=== PATIENT | female | born 1945 | race Caucasian/White ===

== ENCOUNTER 2018-11-04 08:08 | Inpatient (IN) ==
--- NOTE | 2018-11-04 08:10 | PROVIDER DOCUMENTATION ---
HPI-Syncope/Dizziness - General Stated Complaint: VERTIGO, DIZZINESS Time Seen by Provider: 11/04/18 08:09 Source: patient Allergies/Adverse Reactions: Patient Allergies Allergy/AdvReac Type Severity Reaction Status Date / Time azithromycin [From Zithromax] Allergy Intermediate HIVES Verified 11/04/18 10:56 cephalexin [Cephalexin] Allergy Intermediate HIVES/SWELL Verified 11/04/18 10:56 ING ciprofloxacin [From Cipro] Allergy Intermediate HIVES Verified 11/04/18 10:56 ciprofloxacin HCl * Allergy Intermediate HIVES Verified 11/04/18 10:56 [From Cipro] levofloxacin [From Levaquin] Allergy Intermediate HIVES Verified 11/04/18 10:56 Latex, Natural Rubber Allergy Mild RASH Verified 11/04/18 10:56 Sulfa (Sulfonamide Allergy Mild RASH Verified 11/04/18 10:56 Antibiotics) Penicillins Allergy Unknown Unknown Verified 11/04/18 10:56 methylprednisolone Allergy RASH Verified 11/04/18 10:56 chlordiazepoxide AdvReac Severe SYNCOPE Verified 11/04/18 10:56 [From Librax (with clidinium)] clidinium bromide * AdvReac Severe SYNCOPE Verified 11/04/18 10:56 [From Librax (with clidinium)] ceftriaxone [From Rocephin] AdvReac Unknown Verified 11/04/18 10:56 Home Medications: Home Medication List Medication Instructions Recorded Confirmed Last Taken Type Ca Carbonate/Vitamin D3/Vit K 1 each PO BID 01/30/13 11/04/18 11/24/13 20:00 History [Viactiv Tablet Chew] Carvedilol 25 mg PO BID 01/30/13 11/04/18 11/25/13 05:50 History Fexofenadine [Delfina] 180 mg PO DAILY 01/30/13 11/04/18 11/25/13 05:50 History Gabapentin [Neurontin] 300 mg PO TID 01/30/13 11/04/18 11/25/13 05:50 History Losartan Potassium 100 mg PO DAILY 01/30/13 11/04/18 11/25/13 05:50 History Multivit, Iron, Min #5, FA [Fabi S 1 each PO DAILY 01/30/13 11/04/18 11/24/13 08:00 History Forte Caplet] Omeprazole [Prilosec] 20 mg PO DAILY 01/30/13 11/04/18 11/24/13 08:00 History Potassium Chloride [Klor-Con 8] 8 meq PO TID 01/30/13 11/04/18 11/25/13 05:50 History Triamterene/Hydrochlorothiazid 1 each PO DAILY 01/30/13 11/04/18 11/25/13 05:50 History [Triamterene-Hctz 37.5-25 mg Tb] Levothyroxine [Synthroid] 88 microgm PO DAILY 11/24/13 11/04/18 11/24/13 20:00 History PRAVAstatin [Pravachol] 20 mg PO QHS 11/24/13 11/04/18 11/24/13 20:00 History Aspirin 325 mg PO DAILY 11/04/18 11/04/18 Unknown History Clonidine [Catapres] 0.1 mg PO TID 11/04/18 11/04/18 Unknown History Fluticasone 50 Mcg Nasal Boles 1 spray ORDERED DAILY 11/04/18 11/04/18 Unknown History [Flonase] Glimepiride 2 mg PO BID 11/04/18 11/04/18 Unknown History Guaifenesin [Mucinex] 600 mg PO PRN PRN 11/04/18 11/04/18 Unknown History Saxagliptin [Onglyza] 5 mg PO DAILY 11/04/18 11/04/18 Unknown History - History of Present Illness-Syncope/Dizzy Nature of Presenting Problem: Presents to the with complaints of dizziness. She states that she normally gets up at 2-3am and goes to urinate and when she did this morning she felt dizziness. She states that this morning she woke up and was very dizzy. She states that she tried to lift her head up and she ended up having to slide h erself out of the bed onto her covers, messed herself and crawled to get a phone. She states that this has happened to her many years ago and it was vertigo but this time it is worse. She states that she lives alone. She says the dizziness if fine if she is laying flat but if she moves her head and tries to get up she gets dizzy. She denies any weakness in any other extremity Prior Episodes: reports: remote history Onset/Duration: reports: this morning Timing: reports: still present Position/Activity at time of episode: reports: activity Symptoms prior to episode: reports: lightheaded Loss of Consciousness: no loss of consciousness Location of injury. (If syncope resulted in an injury.): reports: none Current Symptoms: reports: dizzy Review of Systems - Adult - REVIEW OF SYSTEMS - ADULT Constitutional: reports: no symptoms reported. denies: chills, fever Eyes: reports: no symptoms reported Ears, Nose, Mouth & Throat: reports: no symptoms reported Cardiovascular: reports: no symptoms reported Respiratory: reports: no symptoms reported Gastrointestinal: reports: no symptoms reported Genitourinary: reports: no symptoms reported Musculoskeletal: reports: no symptoms reported Integumentary: reports: no symptoms reported Neurological: reports: dizziness/vertigo Psychiatric: reports: no symptoms reported Endocrine: reports: no symptoms reported Hematologic/Lymphatic: reports: no symptoms reported Allergic/Immunologic: reports: no symptoms reported All Other Systems: Reviewed and Negative Past History - Adult - PAST MEDICAL HISTORY-ADULT Review of Records: reports: Old Records Reviewed Physical Exam-General - CONSTITUTIONAL General Appearance: alert, mild distress, anxious, other (dried stool on buttocks and legs) - EYES Eyes: PERRL/EOMI - HEAD, EARS, NOSE, MOUTH & THROAT HENMT: normocephalic/atraumatic - NECK Neck: non-tender, full range of motion, supple, normal inspection - RESPIRATORY Respiratory: chest non-tender, lungs clear, normal breath sounds - CARDIOVASCULAR Cardiovascular: normal peripheral pulses, regular rate, rhythm - GASTROINTESTINAL (ABDOMEN) Abdominal Exam: normal bowel sounds, non tender - MUSCULOSKELETAL Back Exam: normal inspection Extremity: normal range of motion, normal inspection - SKIN Integumentary: normal color, warm/dry - NEUROLOGIC Neurologic: infant childcare provider II-XII nml as tested, no motor/sensory deficits - PSYCHIATRIC Psych/Mental Status: normal mood/affect, oriented x 3 Progress - PLAN OF CARE/RESULTS Progress/Plan/Lab Results: Vital Signs - 8 hr 11/04/18 08:19 11/04/18 08:20 11/04/18 08:21 Temperature Pulse Rate 67 75 71 Pulse Rate [Sitting] Pulse Rate [Standing] Pulse Rate [Supine] Respiratory Rate 20 20 25 H Blood Pressure 203/95 Blood Pressure [Sitting] Blood Pressure [Standing] Blood Pressure [Supine] O2 Sat by Pulse Oximetry 96 97 97 11/04/18 08:28 11/04/18 08:30 11/04/18 08:32 Temperature 97.5 F L Pulse Rate 74 66 67 Pulse Rate [Sitting] Pulse Rate [Standing] Pulse Rate [Supine] Respiratory Rate 20 18 21 Blood Pressure 203/95 203/90 Blood Pressure [Sitting] Blood Pressure [Standing] Blood Pressure [Supine] O2 Sat by Pulse Oximetry 95 97 97 11/04/18 08:40 11/04/18 08:47 11/04/18 08:50 Temperature Pulse Rate 71 71 71 Pulse Rate [Sitting] Pulse Rate [Standing] Pulse Rate [Supine] Respiratory Rate 18 19 22 Blood Pressure 220/91 Blood Pressure [Sitting] Blood Pressure [Standing] Blood Pressure [Supine] O2 Sat by Pulse Oximetry 98 97 98 11/04/18 09:00 11/04/18 09:02 11/04/18 09:10 Temperature Pulse Rate 64 64 68 Pulse Rate [Sitting] Pulse Rate [Standing] Pulse Rate [Supine] Respiratory Rate 16 22 17 Blood Pressure 190/98 Blood Pressure [Sitting] Blood Pressure [Standing] Blood Pressure [Supine] O2 Sat by Pulse Oximetry 98 98 98 11/04/18 09:17 11/04/18 09:20 11/04/18 09:30 Temperature Pulse Rate 66 65 65 Pulse Rate [Sitting] Pulse Rate [Standing] Pulse Rate [Supine] Respiratory Rate 17 15 15 Blood Pressure 203/108 Blood Pressure [Sitting] Blood Pressure [Standing] Blood Pressure [Supine] O2 Sat by Pulse Oximetry 98 99 98 11/04/18 09:32 11/04/18 09:44 11/04/18 09:45 Temperature Pulse Rate 66 Pulse Rate [Sitting] Pulse Rate [Standing] Pulse Rate [Supine] Respiratory Rate 16 Blood Pressure 199/85 197/102 Blood Pressure [Sitting] Blood Pressure [Standing] Blood Pressure [Supine] O2 Sat by Pulse Oximetry 98 99 98 11/04/18 09:46 11/04/18 09:48 11/04/18 09:59 Temperature Pulse Rate Pulse Rate [Sitting] 81 Pulse Rate [Standing] 71 Pulse Rate [Supine] 73 Respiratory Rate Blood Pressure 221/102 211/98 Blood Pressure [Sitting] 221/102 Blood Pressure [Standing] 211/98 Blood Pressure [Supine] 197/102 O2 Sat by Pulse Oximetry 98 98 11/04/18 10:25 11/04/18 10:30 11/04/18 10:32 Temperature Pulse Rate 74 72 Pulse Rate [Sitting] Pulse Rate [Standing] Pulse Rate [Supine] Respiratory Rate Blood Pressure 205/130 Blood Pressure [Sitting] Blood Pressure [Standing] Blood Pressure [Supine] O2 Sat by Pulse Oximetry 99 98 97 11/04/18 10:40 11/04/18 10:47 11/04/18 10:50 Temperature Pulse Rate 70 71 72 Pulse Rate [Sitting] Pulse Rate [Standing] Pulse Rate [Supine] Respiratory Rate Blood Pressure 218/100 Blood Pressure [Sitting] Blood Pressure [Standing] Blood Pressure [Supine] O2 Sat by Pulse Oximetry 98 98 98 11/04/18 10:52 11/04/18 11:00 11/04/18 11:02 Temperature Pulse Rate 73 71 70 Pulse Rate [Sitting] Pulse Rate [Standing] Pulse Rate [Supine] Respiratory Rate Blood Pressure 212/98 213/76 Blood Pressure [Sitting] Blood Pressure [Standing] Blood Pressure [Supine] O2 Sat by Pulse Oximetry 99 98 98 11/04/18 11:10 11/04/18 11:17 11/04/18 11:20 Temperature Pulse Rate 68 68 74 Pulse Rate [Sitting] Pulse Rate [Standing] Pulse Rate [Supine] Respiratory Rate Blood Pressure 199/70 Blood Pressure [Sitting] Blood Pressure [Standing] Blood Pressure [Supine] O2 Sat by Pulse Oximetry 98 98 97 11/04/18 11:30 11/04/18 11:32 11/04/18 11:40 Temperature Pulse Rate 65 67 67 Pulse Rate [Sitting] Pulse Rate [Standing] Pulse Rate [Supine] Respiratory Rate Blood Pressure 200/111 Blood Pressure [Sitting] Blood Pressure [Standing] Blood Pressure [Supine] O2 Sat by Pulse Oximetry 97 97 97 11/04/18 11:47 11/04/18 11:50 11/04/18 12:00 Temperature Pulse Rate 69 71 68 Pulse Rate [Sitting] Pulse Rate [Standing] Pulse Rate [Supine] Respiratory Rate Blood Pressure 204/90 Blood Pressure [Sitting] Blood Pressure [Standing] Blood Pressure [Supine] O2 Sat by Pulse Oximetry 97 98 97 11/04/18 12:02 11/04/18 12:10 11/04/18 12:18 Temperature Pulse Rate 70 68 74 Pulse Rate [Sitting] Pulse Rate [Standing] Pulse Rate [Supine] Respiratory Rate 20 Blood Pressure 184/105 191/74 Blood Pressure [Sitting] Blood Pressure [Standing] Blood Pressure [Supine] O2 Sat by Pulse Oximetry 98 98 96 11/04/18 12:20 11/04/18 12:30 11/04/18 12:32 Temperature Pulse Rate 69 73 71 Pulse Rate [Sitting] Pulse Rate [Standing] Pulse Rate [Supine] Respiratory Rate Blood Pressure 173/75 Blood Pressure [Sitting] Blood Pressure [Standing] Blood Pressure [Supine] O2 Sat by Pulse Oximetry 95 92 L 94 L 11/04/18 12:40 11/04/18 12:47 11/04/18 12:50 Temperature Pulse Rate 70 71 72 Pulse Rate [Sitting] Pulse Rate [Standing] Pulse Rate [Supine] Respiratory Rate Blood Pressure 173/61 Blood Pressure [Sitting] Blood Pressure [Standing] Blood Pressure [Supine] O2 Sat by Pulse Oximetry 94 L 93 L 94 L 11/04/18 12:57 11/04/18 13:00 11/04/18 13:02 Temperature Pulse Rate 70 73 69 Pulse Rate [Sitting] Pulse Rate [Standing] Pulse Rate [Supine] Respiratory Rate 18 20 Blood Pressure 168/70 172/69 Blood Pressure [Sitting] Blood Pressure [Standing] Blood Pressure [Supine] O2 Sat by Pulse Oximetry 91 L 96 95 Laboratory Results - last 24 hr 11/04/18 11/04/18 11/04/18 08:26 08:52 08:52 WBC 9.92 RBC 4.94 Hgb 15.2 Hct 44.8 MCV 90.7 MCH 30.8 MCHC 33.9 RDW Std Deviation 13.4 Plt Count 192 MPV 9.7 Immature Gran % (Auto) 0.4 Neut % (Auto) 76.6 H Lymph % (Auto) 12.6 L [place] % (Auto) 7.0 Eos % (Auto) 2.9 Baso % (Auto) 0.5 Immature Gran # (Auto) 0.04 Neut # (Auto) 7.60 H Lymph # (Auto) 1.25 [place] # (Auto) 0.69 H Eos # (Auto) 0.29 Baso # (Auto) 0.05 Sodium 141 Potassium 3.8 Chloride 101 Carbon Dioxide 27 Anion Gap 13 BUN 18 Creatinine 0.8 Estimated GFR/1.73 m2 > 60 BUN/Creatinine Ratio 23 Glucose 174 H POC Glucose 187 H Calculated Osmolality 287 Calcium 9.5 Total Bilirubin 0.52 AST 27 ALT 32 Alkaline Phosphatase 85 Troponin T Total Protein 6.8 Albumin 4.2 Globulin 2.6 Albumin/Globulin Ratio 1.6 TSH Free T4 Urine Source Urine Color Urine Turbidity Urine pH Ur Specific [place] Urine Protein Ur Glucose (Stick) Ur Ketones (Stick) Urine Blood Urine Nitrite Urine Bilirubin Urobilinogen Dipstick Urine Leukocytes Urine WBC (Auto) Urine RBC (Auto) U Epithel Cells (Auto) Urine Bacteria (Auto) Urine Opiates Screen Ur Oxycodone Screen Ur Methadone, Qual Ur Barbiturates Screen Ur Phencyclidine Scrn Ur Amphetamines Screen U Benzodiazepines Scrn Urine Cocaine Screen U Cannabinoids Screen 11/04/18 11/04/18 11/04/18 08:52 08:52 09:55 WBC RBC Hgb Hct MCV MCH MCHC RDW Std Deviation Plt Count MPV Immature Gran % (Auto) Neut % (Auto) Lymph % (Auto) [place] % (Auto) Eos % (Auto) Baso % (Auto) Immature Gran # (Auto) Neut # (Auto) Lymph # (Auto) [place] # (Auto) Eos # (Auto) Baso # (Auto) Sodium Potassium Chloride Carbon Dioxide Anion Gap BUN Creatinine Estimated GFR/1.73 m2 BUN/Creatinine Ratio Glucose POC Glucose Calculated Osmolality Calcium Total Bilirubin AST ALT Alkaline Phosphatase Troponin T < 0.010 Total Protein Albumin Globulin Albumin/Globulin Ratio TSH 2.22 Free T4 1.27 Urine Source CATH Urine Color YELLOW Urine Turbidity CLEAR Urine pH 5.5 Ur Specific [place] 1.002 Urine Protein NEGATIVE Ur Glucose (Stick) NEGATIVE Ur Ketones (Stick) NEGATIVE Urine Blood SMALL A Urine Nitrite NEGATIVE Urine Bilirubin NEGATIVE Urobilinogen Dipstick NORMAL Urine Leukocytes TRACE A Urine WBC (Auto) <10 Urine RBC (Auto) 20-40 A U Epithel Cells (Auto) <10 Urine Bacteria (Auto) 2+ Urine Opiates Screen Ur Oxycodone Screen Ur Methadone, Qual Ur Barbiturates Screen Ur Phencyclidine Scrn Ur Amphetamines Screen U Benzodiazepines Scrn Urine Cocaine Screen U Cannabinoids Screen 11/04/18 09:55 WBC RBC Hgb Hct MCV MCH MCHC RDW Std Deviation Plt Count MPV Immature Gran % (Auto) Neut % (Auto) Lymph % (Auto) [place] % (Auto) Eos % (Auto) Baso % (Auto) Immature Gran # (Auto) Neut # (Auto) Lymph # (Auto) [place] # (Auto) Eos # (Auto) Baso # (Auto) Sodium Potassium Chloride Carbon Dioxide Anion Gap BUN Creatinine Estimated GFR/1.73 m2 BUN/Creatinine Ratio Glucose POC Glucose Calculated Osmolality Calcium Total Bilirubin AST ALT Alkaline Phosphatase Troponin T Total Protein Albumin Globulin Albumin/Globulin Ratio TSH Free T4 Urine Source Urine Color Urine Turbidity Urine pH Ur Specific [place] Urine Protein Ur Glucose (Stick) Ur Ketones (Stick) Urine Blood Urine Nitrite Urine Bilirubin Urobilinogen Dipstick Urine Leukocytes Urine WBC (Auto) Urine RBC (Auto) U Epithel Cells (Auto) Urine Bacteria (Auto) Urine Opiates Screen NONE DETECTED Ur Oxycodone Screen NONE DETECTED Ur Methadone, Qual NONE DETECTED Ur Barbiturates Screen NONE DETECTED Ur Phencyclidine Scrn NONE DETECTED Ur Amphetamines Screen NONE DETECTED U Benzodiazepines Scrn NONE DETECTED Urine Cocaine Screen NONE DETECTED U Cannabinoids Screen NONE DETECTED Orders Category Date Time Status Admit - [facility] Routine [id number] 11/04/18 13:14 Active Activity - Up with Assistance ORDERED Care 11/04/18 13:14 Active DVT/PE Risk Assess/Protocol [QM] ORDERED Care 11/04/18 13:14 Active ED: Orthostatic Vital Signs (E DIRECTED Care 11/04/18 09:17 Completed FSBS/Accucheck Result ORDERED Care 11/04/18 13:14 Active Intake and Output-Strict ORDERED Care 11/04/18 13:14 Active Resuscitation Status Routine Care 11/04/18 12:25 Ordered Vital Signs Order Q 8-HR ASSESS Care 11/04/18 13:14 Active Diabetic Diet Diet 11/04/18 13:14 Active CHEST-2 VIEWS [RAD] Stat Exams 11/04/18 09:[address] HEAD W/O CONTRAST [CT] Stat Exams 11/04/18 09:17 Completed CBC WITH ELECTRONIC DIFF [HEME] Stat Lab 11/04/18 08:52 Completed COMPREHENSIVE METABOLIC PANEL [CHEM] Stat Lab 11/04/18 08:52 Completed FREE T4 Stat Lab 11/04/18 08:52 Completed TROPONIN T Stat Lab 11/04/18 08:52 Completed TSH Stat Lab 11/04/18 08:52 Completed URINALYSIS W/POSS RFLX CULT [URINALYSIS] Stat Lab 11/04/18 09:55 Completed URINE CULTURE [RM] Routine Lab 11/04/18 10:37 Received URINE DRUG SCREEN Stat Lab 11/04/18 09:55 Completed 0.9% Sodium Chloride Inj [Ns] 1,000 ml Med 11/04/18 13:14 Active IV 42 mls/hr Acetaminophen [Tylenol] Med 11/04/18 13:14 Active 650 mg PO Q6H PRN PRN Aspirin Med 11/05/18 09:00 Active 325 mg PO DAILY Carvedilol [Coreg] Med 11/04/18 21:00 Active 25 mg PO BID Carvedilol [Coreg] Med 11/04/18 12:24 Discontinued 25 mg PO NOW ONE Clonidine [Catapres] Med 11/04/18 11:24 Discontinued 0.1 mg PO NOW ONE Clonidine [Catapres] Med 11/04/18 12:23 Discontinued 0.1 mg PO NOW ONE Clonidine [Catapres] Med 11/04/18 13:14 Active 0.1 mg PO TID Enoxaparin [Lovenox] Med 11/04/18 21:00 Active 40 mg SUBQ Q24H Fluticasone 50 Mcg Nasal Boles [Flonase] Med 11/05/18 09:00 Active 1 spray JORGE DAILY Gabapentin [Neurontin] Med 11/04/18 13:14 Active 300 mg PO TID Glimepiride [Amaryl] Med 11/04/18 17:00 Active 2 mg PO BID CC Levothyroxine [Synthroid] Med 11/05/18 09:00 Active 88 microgm PO DAILY Losartan [Cozaar] Med 11/05/18 09:00 Active 100 mg PO DAILY Losartan [Cozaar] Med 11/04/18 12:24 Discontinued 100 mg PO NOW ONE Meclizine [Antivert] Med 11/04/18 11:24 Discontinued 25 mg PO NOW ONE Meclizine [Antivert] Med 11/04/18 13:14 Active 25 mg PO Q6H PRN Omeprazole [Prilosec] Med 11/05/18 09:00 Active 20 mg PO DAILY Ondansetron Odt [Zofran Odt] Med 11/04/18 12:25 Discontinued 4 mg PO NOW ONE PRAVAstatin [Pravachol] Med 11/04/18 21:00 Active 20 mg PO QHS Potassium Chloride E.r. [Klor-Con] Med 11/04/18 13:14 Active 8 meq PO TID Saxagliptin [Onglyza] Med 11/05/18 09:00 Active 5 mg PO DAILY Triamterene/Hctz [Maxzide-25] Med 11/05/18 09:00 Active 1 each PO DAILY EKG [EKG] Stat Ther 11/04/18 08:22 Draft Physical Therapy Eval/Treatment [OM.PT] Routine Ther 11/04/18 13:14 Active Transfer/Admit Order [TRANSFER] Routine Transfer 11/04/18 12:25 Completed Result Diagrams: 11/04/18 08:52 11/04/18 08:52 - CONSULTS/PCP/HOSPITALIST Notification #1 *Consult/PCP/Hospitalist*: Dr Macias Consult Disposition: Admit (Paged Dr Macias, Dr Macias told medical records secretary he will come down to evaluate the patient) Departure - Departure Date of Disposition Decision: 11/04/18 Time of Disposition Decision: 13:14 DIAGNOSIS: Dizziness Disposition: ADMITTED INPATIENT 09 Certified Medical Emergency: Emergent Condition: Stable - Critical Care Note This patient required my direct & personal management of CC.: No Attestation - Physician/ MARYANN Attestation Patient care was provided by Advanced Practice Provider:: No The physician spent face to face time with patient:: Yes Advanced Practice Provider documentation review:: Supervising physician onsite and consulted in the evaluation and care of this patient. The physician did have a face to face encounter with the patient.
[2018-11-04 09:52] LABS: BASO# 0.05 X1000 (0.0-0.2); BASO% 0.5 % (0.0-0.8); EOS# 0.29 X1000 (0.0-0.7); EOS% 2.9 % (0.0-10.0); HEMATOCRIT 44.8 % (37.0-47.0); HEMOGLOBIN 15.2 g/dL (12.0-16.0); IMM GRAN# 0.04 X1000 (0.0-0.04); IMM GRAN% 0.4 % (0.0-0.5); LYMPH# 1.25 X1000 (1.2-3.4); LYMPH% 12.6 % (20.5-51.1); MCH 30.8 PG (27-31); MCHC 33.9 g/dL (33-37); MCV 90.7 FL (81-99); MONO# 0.69 X1000 (0.11-0.59); MPV 9.7 FL (7.4-10.4); NEUT% 76.6 % (42.2-75.2); PLT 192 X1000 (130-400); RBC 4.94 XMIL (4.2-5.4); RDW 13.4 % (11.5-14.5); WBC 9.92 X1000 (4.8-10.8)
[2018-11-04 10:03] LABS: AGAP 13; ALB/GLOB RATIO 1.6; ALBUMIN 4.2 g/dL (3.5-5.0); ALKALINE PHOSPHATASE 85 U/L (32-104); BUN 18 mg/dL (8-22); CALCIUM 9.5 mg/dL (8.8-10.2); CHLORIDE 101 mmol/L (98-107); COSMO 287; CREATININE 0.8 mg/dL (0.5-0.9); ESTIMATED GFR > 60; GLUCOSE 174 mg/dL (70-104); GOT 27 U/L (10-30); GPT 32 U/L (10-36); POTASSIUM 3.8 mmol/L (3.5-5.1); SODIUM 141 mmol/L (136-145); TCO2 27 mmol/L (25-35); TOTAL BILIRUBIN 0.52 mg/dL (0.20-1.00); TOTAL PROTEIN 6.8 g/dL (6.3-8.3)
[2018-11-04 10:15] LABS: FREE T4 1.27 ng/dL (0.93-1.70); TSH 2.22 uIUmL (0.27-4.20)
--- NOTE | 2018-11-04 10:20 | Diag Imaging Result Doc PS360 ---
EXAM: CT HEAD W/O CONTRAST 11/04/2018 HISTORY: dizziness TECHNIQUE: This exam was performed using automated exposure control, adjustment of mA or kV according to patient size, and/or use of iterative reconstruction technique. COMMENT: There is no evidence of mass effect, bleed, or abnormal extra-axial fluid collection. There is some minimal subcortical white matter lucency in the left parietal convexity. The visualized paranasal sinuses are clear. The calvarium is intact. There is no evidence of bleed or abnormal extra-axial fluid collection. IMPRESSION: Minimal chronic microvascular white matter change. No evidence of acute disease. Electronically signed by William Soto 11/04/2018 10:18 AM
--- NOTE | 2018-11-04 10:27 | Diag Imaging Result Doc PS360 ---
EXAM: CHEST-2 VIEWS HISTORY: dizziness TECHNIQUE: Chest two views COMPARISON: None. FINDINGS: The lungs are well expanded. The heart is not enlarged. The vessels are not distended. There are no infiltrates. No pleural effusions. IMPRESSION: No acute abnormality. Electronically signed by Kendall Watkins 11/04/2018 10:24 AM
[2018-11-04 10:28] LABS: URINE SOURCE CATH
[2018-11-04 10:35] LABS: BILIRUBIN URINE NEGATIVE (NEGATIVE); BLOOD URINE SMALL (NEGATIVE); COLOR YELLOW; GLUCOSE URINE NEGATIVE (NEGATIVE); KETONE URINE NEGATIVE (NEGATIVE); LEUKOCYTES URINE TRACE (NEGATIVE); NITRITE URINE NEGATIVE (NEGATIVE); PH URINE 5.5; PROTEIN URINE NEGATIVE (NEGATIVE); SP GRAVITY URINE 1.002; TURBIDITY URINE CLEAR (CLEAR); UROBILINOGEN URINE NORMAL (NORMAL)
[2018-11-04 10:36] LABS: UR EPITHELIAL CELLS <10 /HPF (<10); URINE BACTERIA 2+ /HPF; URINE RBC 20-40 /HPF (<10); URINE WBC <10 /HPF (<10)
[2018-11-04 10:42] LABS: UR AMPHETAMINES QUAL NONE DETECTED (NONE DETECT); UR BARBITUATES QUAL NONE DETECTED (NONE DETECT); UR BENZODIAZEPIN QUAL NONE DETECTED (NONE DETECT); UR CANNABINOIDS QUAL NONE DETECTED (NONE DETECT); UR COCAINE QUAL NONE DETECTED (NONE DETECT); UR METHADONE QUAL NONE DETECTED (NONE DETECT); UR OPIATES QUAL NONE DETECTED (NONE DETECT); UR OXYCODONE QUAL NONE DETECTED (NONE DETECT); UR PCP QUAL NONE DETECTED (NONE DETECT)
--- NOTE | 2018-11-04 11:19 | EKG Report ---
Test Performed on : 11/04/2018 08:22:29 AM Test Reason : ED. No order in [place] Blood Pressure : / mmHG Vent. Rate : 070 BPM Atrial Rate : 070 BPM P-R Int : 154 ms QRS Dur : 110 ms QT Int : 408 ms P-R-T Axes : 070 036 067 degrees QTc Int : 440 ms Normal sinus rhythm. Possible Anterior infarct , age undetermined Abnormal ECG No previous ECGs available Unconfirmed Result
[2018-11-04] MEDS ORDERED: CATAPRES PO ONE ×2 (11:24→12:23)
[2018-11-04] MEDS ORDERED: ANTIVERT PO ONE (11:24)
[2018-11-04] MEDS ORDERED: COREG PO ONE (12:24)
[2018-11-04] MEDS ORDERED: COZAAR PO ONE (12:24)
[2018-11-04] MEDS ORDERED: ZOFRAN ODT PO ONE (12:25)
[2018-11-04] MEDS ORDERED: NS 1,000 ML IV SCH (13:14)
[2018-11-04] MEDS ORDERED: TYLENOL PO PRN (13:14)
--- NOTE | 2018-11-04 13:57 | HISTORY AND PHYSICAL ---
CHIEF COMPLAINT: Severe and incapacitating vertigo. HISTORY OF PRESENT ILLNESS: Ms. Chaparro is a 73-year-old white female followed by Dr. Rolly Alegre for multiple medical problems, including Type 2 diabetes mellitus and hypertension. She was feeling well yesterday and went to bed last night without any problems. When she attempted to sit up and get out of bed this morning, she suddenly became very vertiginous with the room spinning around. She was unable to stand or walk to the bathroom. She eventually scooted out over the foot of her bed landing on pillows and her cover. She was able to call for help and was brought by ambulance to the ER. In the process of getting out of bed she had a bowel movement which she feels was due to not being able to get up and walk to the bathroom. She denies any fevers or chills. She does remember a previous episode of vertigo several years ago. At that time she remembers seeing the [facility] and having a number of tests. She thinks Dr. Mendoza was the physician who saw her there. She eventually got better and has not had problems. Approximately 2 weeks ago, she went to Dr. Alegre and was found to have some fluid in her right ear behind the eardrum. She has been taking some Mucinex since to try to improve this. However, she did not have the sudden onset of vertigo until this morning. PAST MEDICAL HISTORY: She has a history of hypertension and takes multiple medications. She has a history of diabetes mellitus Type 2 with peripheral neuropathy and takes multiple medications for these as well. She also has a history of hypothyroidism and hyperlipidemia. HOME MEDICATIONS: 1. Aspirin 325 mg daily. 2. Viactiv chewable tablet 1 twice a day for calcium and Vitamin D. 3. Carvedilol 25 mg twice a day. 4. Clonidine 0.1 mg 3 times a day. 5. Delfina 180 mg daily. 6. Flonase nasal spray 1 spray in each nostril daily. 7. Gabapentin 300 mg 3 times a day. 8. Glimepiride 2 mg twice a day. 9. Mucinex 600 mg twice a day. 10.Levothyroxine 88 mcg daily. 11.Losartan 100 mg daily. 12.Multivitamin 1 daily. 13.Omeprazole 20 mg daily. 14.Potassium chloride 8 mEq 3 times a day. 15.Pravastatin 20 mg q bedtime. 16.Onglyza 5 mg q a.m. 17.Dyazide 1 daily. ALLERGIES: She has multiple drug allergies, including penicillin, cephalosporins, Zithromax, ciprofloxacin, levofloxacin, latex, sulfur drugs, chlordiazepoxide and methylprednisolone. FAMILY HISTORY: Positive for hypertension and diabetes. SOCIAL HISTORY: She is and lives alone. She is retired. She is a life-long nonsmoker and denies recent alcohol intake. REVIEW OF SYSTEMS: GENERAL: She denies headaches, fever, chills, night sweats or weight loss. HEENT: Vision and hearing are adequate without recent changes. She denies tinnitus. RESPIRATORY: No cough, shortness of breath or chronic lung disease. CARDIOVASCULAR: No angina or history of ischemic heart disease. No palpitations, orthopnea, PND, pedal edema. No history of CHF or valvular heart disease. GI: Appetite has been good until recently. She has been very nauseated today but unable to vomit. She denies any diarrhea. No melena or bright red blood per rectum. : No dysuria, increased frequency or urination or gross hematuria. NEUROLOGIC: No history of strokes or seizures. PSYCHIATRIC: Memory and mood have been unremarkable. PHYSICAL EXAMINATION: VITAL SIGNS: Blood pressure 211/98, temperature 97.5, pulse 66, respirations 16, O2 sats 97% on room air. Blood pressure no orthostatic changes. GENERAL APPEARANCE: An obese elderly white female lying quietly on the stretcher. SKIN: Warm, pink and dry without visible rash. HEENT: Pupils are 3-4 mm equal, round and reactive with nystagmus horizontal with left and right lateral gaze. Tympanic membranes are pink and pearly without obvious fluid or perforations. Oropharynx is benign. NECK: Supple but heavyset with no adenopathy or carotid bruits. Thyroid exam is unremarkable. CHEST: Lungs are clear bilaterally. BREASTS: Not examined. CARDIOVASCULAR: Regular rate and rhythm. No murmurs, gallops or rubs. ABDOMEN: Obese, soft and nontender with active bowel sounds. There is no guarding or rebound tenderness present. EXTREMITIES: No clubbing, cyanosis or edema. NEUROLOGIC: Cranial nerve examination is unremarkable except for the nystagmus. There is no facial asymmetry. Her speech is clear and well articulated. Memory seems normal. She moves all extremities on command. Gait is not tested. White blood count 9900, hemoglobin 15.2 grams, hematocrit 44.8%, platelet count normal. Electrolytes are normal, BUN 18, creatinine 0.8, glucose 174. Calcium and LFTs are unremarkable. Troponin is negative. Thyroid function is unremarkable. Urinalysis shows small amount of blood, trace leukocytes and 20-40 RBCs on a cath specimen. ASSESSMENT: 1. Acute onset of vertigo, probably acute labyrinthitis. 2. Essential hypertension, recently uncontrolled but unable to take her medicines since yesterday evening. Will resume her p.o. medications and if necessary use parenteral medications. 3. Type 2 diabetes mellitus, relatively well controlled with recent hemoglobin A1C of 6.5%. 4. Microscopic hematuria, consider urethral trauma from the catheter. TREATMENT PLAN: As she lives alone and has incapacitating vertigo, we will admit for safety. She has not responded to 1 dose of meclizine here in the hospital several hours ago. We will have her evaluated by physical therapy and begin and also attempt to get her up in a chair at mealtime. She will receive Lovenox DVT prophylaxis and be continued on her home medications. cc: Sachin Macias MD
[2018-11-04] MEDS: CATAPRES PO SCH ×2 (14:25→17:17)
[2018-11-04] MEDS ORDERED: CALMOSEPTINE OINTMENT TOP PRN (15:35)
[2018-11-04] MEDS: NEURONTIN PO SCH ×2 (17:16→18:49)
[2018-11-04] MEDS: ANTIVERT PO PRN (17:16)
[2018-11-04] MEDS: AMARYL PO SCH (17:17)
[2018-11-04] MEDS: KLOR-CON PO SCH ×2 (17:26→18:50)
[2018-11-04] MEDS: COREG PO SCH (23:22)
[2018-11-04] MEDS: PRAVACHOL PO SCH (23:22)
[2018-11-04] MEDS: LOVENOX SUBQ SCH (23:23)
[2018-11-05] MEDS: SYNTHROID PO SCH ×2 (07:56→09:45)
[2018-11-05] MEDS ORDERED: ZOFRAN ODT PO PRN (08:09)
[2018-11-05] MEDS: MAXZIDE-25 PO SCH (09:38)
[2018-11-05] MEDS: COZAAR PO SCH (09:38)
[2018-11-05] MEDS: PRILOSEC PO SCH (09:38)
[2018-11-05] MEDS: KLOR-CON PO SCH ×3 (09:39→20:52)
[2018-11-05] MEDS: FLONASE NAS SCH (09:39)
[2018-11-05] MEDS: NEURONTIN PO SCH ×3 (09:39→20:52)
[2018-11-05] MEDS: COREG PO SCH ×2 (09:39→20:53)
[2018-11-05] MEDS: AMARYL PO SCH ×2 (09:39→16:30)
[2018-11-05] MEDS: ONGLYZA PO SCH (09:39)
[2018-11-05] MEDS: ASPIRIN PO SCH (09:39)
[2018-11-05] MEDS: CATAPRES PO SCH ×3 (09:45→20:52)
[2018-11-05] MEDS: ANTIVERT PO PRN ×3 (09:49→22:30)
[2018-11-05] MEDS: BAZA ANTIFUNGAL CREAM TOP SCH ×2 (09:51→20:54)
[2018-11-05] MEDS: PRAVACHOL PO SCH (20:53)
[2018-11-05] MEDS: LOVENOX SUBQ SCH (20:53)
[2018-11-06] MEDS: ANTIVERT PO PRN ×3 (06:58→20:25)
[2018-11-06] MEDS: SYNTHROID PO SCH (06:58)
[2018-11-06] MEDS: ONGLYZA PO SCH (08:31)
[2018-11-06] MEDS: CATAPRES PO SCH ×3 (08:31→20:40)
[2018-11-06] MEDS: COZAAR PO SCH (08:31)
[2018-11-06] MEDS: FLONASE NAS SCH (08:31)
[2018-11-06] MEDS: ASPIRIN PO SCH (08:32)
[2018-11-06] MEDS: PRILOSEC PO SCH (08:32)
[2018-11-06] MEDS: COREG PO SCH ×2 (08:32→20:40)
[2018-11-06] MEDS: MAXZIDE-25 PO SCH (08:32)
[2018-11-06] MEDS: BAZA ANTIFUNGAL CREAM TOP SCH ×2 (08:32→20:24)
[2018-11-06] MEDS: AMARYL PO SCH ×2 (08:32→16:56)
[2018-11-06] MEDS: NEURONTIN PO SCH ×3 (08:32→16:56)
[2018-11-06] MEDS: KLOR-CON PO SCH ×3 (08:41→16:56)
[2018-11-06] MEDS: LOVENOX SUBQ SCH (20:25)
[2018-11-06] MEDS: PRAVACHOL PO SCH (20:25)
[2018-11-07] MEDS: ANTIVERT PO PRN (02:48)
[2018-11-07] MEDS: SYNTHROID PO SCH (06:15)
--- NOTE | 2018-11-07 09:32 | PROGRESS NOTE ---
DATE: 11/07/2018 SUBJECTIVE: The patient states that she is feeling only marginally better. She states that things are not clear, but she does not have the true vertigo or spinning sensation that she had upon admission. She just feels unsteady. I offered to have people get her up with assistance and possibly even into a shower chair and she declined. She really seemed to have no impetus toward being discharged. OBJECTIVE: Vital signs: Temperature 97.8, pulse 71, respiratory rate 20, blood pressure 173/63, 96% saturated on room air. General: She is an obese, white female, in no acute distress. HEENT: Unremarkable by observation. Lungs: Clear to auscultation bilaterally. Cardiovascular: Regular without appreciable murmur or gallop. Extremities: Show trace edema. ASSESSMENT AND PLAN: 1. Patient's unsteadiness on feet remains. She does not seem to be very willing to participate in activities to get her up and moving. She states that she cannot go home like this. 2. The patient's diabetes is reasonably well controlled. 3. Blood pressure is still somewhat elevated. She states that she was feeling better until she heard a Code Blue overhead. This got her very emotionally upset and her blood pressure went up. We will continue to monitor blood pressure. 4. The patient continues to require inpatient hospital monitoring. cc: MD Sachin Lazar MD
[2018-11-07] MEDS: COREG PO SCH ×2 (10:12→20:56)
[2018-11-07] MEDS: ONGLYZA PO SCH (10:12)
[2018-11-07] MEDS: ASPIRIN PO SCH (10:12)
[2018-11-07] MEDS: CATAPRES PO SCH ×3 (10:12→20:56)
[2018-11-07] MEDS: MAXZIDE-25 PO SCH (10:12)
[2018-11-07] MEDS: KLOR-CON PO SCH ×3 (10:13→16:41)
[2018-11-07] MEDS: AMARYL PO SCH ×2 (10:13→16:41)
[2018-11-07] MEDS: ANTIVERT PO SCH ×2 (10:14→16:41)
[2018-11-07] MEDS: FLONASE NAS SCH (10:14)
[2018-11-07] MEDS: PRILOSEC PO SCH (10:14)
[2018-11-07] MEDS: NEURONTIN PO SCH ×3 (10:14→16:41)
[2018-11-07] MEDS: COZAAR PO SCH (10:14)
[2018-11-07] MEDS: BAZA ANTIFUNGAL CREAM TOP SCH ×2 (10:15→20:57)
[2018-11-07] MEDS: PRAVACHOL PO SCH (20:56)
[2018-11-07] MEDS: LOVENOX SUBQ SCH (20:56)
[2018-11-08] MEDS: ANTIVERT PO SCH ×3 (01:21→13:49)
[2018-11-08] MEDS: SYNTHROID PO SCH (06:04)
[2018-11-08] MEDS: FLONASE NAS SCH (08:03)
[2018-11-08 08:14] VITALS: BP 132/78
[2018-11-08] MEDS: COZAAR PO SCH (08:14)
[2018-11-08] MEDS: ONGLYZA PO SCH (08:14)
[2018-11-08] MEDS: ASPIRIN PO SCH (08:15)
[2018-11-08] MEDS: AMARYL PO SCH (08:15)
[2018-11-08] MEDS: COREG PO SCH (08:15)
[2018-11-08] MEDS: NEURONTIN PO SCH ×2 (08:15→13:11)
[2018-11-08] MEDS: PRILOSEC PO SCH (08:15)
[2018-11-08] MEDS: CATAPRES PO SCH (08:15)
[2018-11-08] MEDS: MAXZIDE-25 PO SCH (08:15)
[2018-11-08] MEDS: KLOR-CON PO SCH ×2 (08:15→13:11)
[2018-11-08] MEDS: BAZA ANTIFUNGAL CREAM TOP SCH (13:49)
--- NOTE | 2018-12-17 14:28 | DISCHARGE SUMMARY ---
ADMISSION DATE: 11/04/2018 DISCHARGE DATE: 11/08/2018 DISCHARGE DIAGNOSES: 1. Acute labyrinthitis with associated nausea and vomiting. 2. Acute benign positional vertigo. 3. Essential hypertension. 4. Type 2 sdy-qgfxrqr-ueqeqzvbk diabetes mellitus complicated by polyneuropathy. 5. Primary hypothyroidism. 6. Mixed hyperlipidemia. 7. Allergic rhinitis. DISCHARGE INSTRUCTIONS: 1. Return to clinic in 1 week to see me Dr. Rolly Alegre in anticipation of a transition of care visit. 2. Activity as tolerated. 3. 1800 calorie ADA diet. MEDICATIONS: 1. Catapres 0.2 mg t.i.d. 2. Amaryl 2 mg b.i.d. 3. Antivert 25 mg q.6 hours p.r.n. dizziness. 4. Omeprazole 20 mg daily. 5. Fexofenadine 180 mg daily. 6. Multivitamin 1 p.o. daily. 7. Losartan 100 mg daily. 8. KCl 8 mEq t.i.d. 9. Gabapentin 300 mg t.i.d. 10. Coreg 25 mg b.i.d. 11. Pravastatin 20 mg at bedtime. 12. Levothyroxine 88 mcg daily. 13. Aspirin 325 mg daily. 14. Flonase nasal spray 1 spray to each nostril daily. 15. Onglyza 5 mg daily. PHYSICAL EXAMINATION: General: This is a well-developed, well-nourished, 73-year-old, lady in no apparent distress. Vital Signs: Temperature 97.7 degrees, pulse 82, respirations 22, BP 129/55. CV: Regular rate and rhythm. Lungs: Clear. Abdomen: Soft, nontender with active bowel sounds. HISTORY: The patient was admitted to [facility] with acute labyrinthitis associated with intractable nausea and vomiting. She was rehydrated with normal saline and her nausea and vomiting was treated on a p.r.n. basis with Zofran. The patient was started on Antivert meclizine 25 mg q.6 hours. Valium was used on a p.r.n. basis. With rehydration and round the clock Antivert, her dizziness improved markedly. The nausea and vomiting resolved. We will continue Antivert 25 mg q.6 hours for an additional day and then p.r.n. We will make a referral to one of the local ENT doctors for physical therapy. She does have a longstanding history of hypertension. Her blood pressure was generally well controlled during her hospitalization. She denied any chest pain, palpitations, or anginal equivalents. She does have a history of type 2 qai-kmrtola-dxiwjjpnk diabetes mellitus. She was initially placed on a pattern sugar Humulin R sliding scale. She was started on clear liquids, and advanced to an 1800 calorie ADA diet. Blood sugars remained stable on a combination of glimepiride and Onglyza. Having reached maximum hospital benefit, the patient was discharged in stable condition. cc: Marilee Alegre MD
== END 2018-11-08 13:53 | disposition home or self-care (01) | DRG 149 ==
LOC: SUPCPDRO → ED 08:08 → 4N 13:03
PROVIDERS: ADMIT Internal Medicine; ATTEND Internal Medicine
CPT/HCPCS: 70450; 71020; 71046; 80053; 80101; 80301; 80307; 80324; 80345; 80346; 80353; 80358; 80361; 80365; 81001; 82948; 83992; 84134; 84439; 84443; 84484; 85025; 87088; 93005; 97110; 97162; 97530; 99285; A9270; G0431; G0434; G0479; G0480; J1650; J7030; XXXXX

== ENCOUNTER 2019-05-04 12:02 | Observation (INO) ==
--- NOTE | 2019-05-04 12:19 | PROVIDER DOCUMENTATION ---
HPI-Musculoskeletal Pain/Inj - GENERAL Stated Complaint: FALL/ LEFT ARM PAIN Time Seen by Provider: 05/04/19 12:15 Source: patient, EMS - HX OF PRESENT ILLNESS-MUSKULOSKELTAL Nature of Presenting Problem: 74 YO F pmh for HTN, DM, presents after a trip in fall over a tree root while visiting a friend at an SNF today. She landed on her left side and injured her shoulder. She denies LOC, dizziness, head trauma. She was brought in by EMS. Quality of Pain: reports: aching Severity in ED: moderate Onset/Duration: 1/2 hour ago Timing: still present Modifying Factors: improves with: nothing Any recent injury?: Yes Locality of Occurance: Other Similar Symptoms Previously?: No Recently seen or treated by another doctor?: No - FALL INJURY Location of Pain/Injury: reports: upper extremity Pain Radiation: reports: no radiation Reason for Fall: reports: tripped Symptoms prior to fall:: reports: none Loss of Consciousness: no loss of consciousness Injury Associated Symptoms: reports: arm pain, joint pain - BACK & NECK PAIN/INJURY Back/Neck Pain Location: denies: C-spine, T-spine - TRUNK INJURY Location of Injury(s)/Pain: denies: chest, abdomen - HIP/PELVIS PAIN/INJURY Hip Pain Location: denies: hip (R), hip (L) - UPPER EXTREMITY PAIN/INJURY Extremities Pain Location: shoulder: left, arm: left Context / Method of Injury: reports: fell Associated Symptoms: denies: sensory/motor loss, tingling in upper ext Review of Systems - Adult - REVIEW OF SYSTEMS - ADULT Constitutional: denies: chills, fever Eyes: reports: no symptoms reported Ears, Nose, Mouth & Throat: reports: no symptoms reported Cardiovascular: denies: chest pain Respiratory: denies: shortness of breath Gastrointestinal: reports: no symptoms reported Genitourinary: reports: no symptoms reported Musculoskeletal: reports: see HPI, bone pain Integumentary: denies: no symptoms reported Neurological: denies: dizziness/vertigo, headache/migraines, seizure, syncope Hematologic/Lymphatic: reports: no symptoms reported Allergic/Immunologic: reports: no symptoms reported Past History - Adult - PAST MEDICAL HISTORY-ADULT Review of Records: reports: Old Records Reviewed, Medications Reviewed Major Childhood Illnesses: reports: denies history Cardiovascular: reports: HTN Respiratory: reports: denies history Gastrointestinal: reports: denies history Musculoskeletal: reports: orthopedic injury Endocrine/Immune: reports: Diabetes, thyroid disorder - PRIOR SURGERIES/PROCEDURES Surgical/Procedure History: reports: orthopedic (extremity) - FAMILY HISTORY Family History: reviewed, not pertinent - SOCIAL HISTORY Smoking: denies Substance Use: denies Living Situation: alone Physical Exam-Injury Related - Physical Exam-Injury Related Initial Vital Signs Reviewed: Yes General Appearance: alert, mild distress (from pain) Eyes: PERRL/EOMI Head, Ears, Nose, Mouth & Throat: normocephalic/atraumatic, moist mucous membranes Neck: non-tender, full range of motion, supple Respiratory: lungs clear, normal breath sounds Cardiovascular: normal peripheral pulses, regular rate, rhythm Peripheral Pulses: radial (L): 2+ Abdominal Exam: non tender, soft Extremity: other (decreased ROM of left shoulder/arm, no ecchymosis or swelling noted, no obvious deformity, well perfused with good radial pulses. Right arm with chronic decreased ROM and scar over glenohumeral joint from previous surgery.) Integumentary: normal color, warm/dry - Glascow Coma Score Best Eye Response ([place]): (4) open spontaneously Best Verbal Response ([place]): (5) oriented Best Motor Response ([place]): (6) obeys commands Progress - PLAN OF CARE/RESULTS Progress/Plan/Lab Results: Vital Signs - 8 hr 05/04/19 12:13 05/04/19 12:14 05/04/19 12:20 Temperature 97.5 F L Pulse Rate 75 Respiratory Rate 18 Blood Pressure 167/101 167/101 O2 Sat by Pulse Oximetry 94 L 96 95 05/04/19 12:39 05/04/19 12:41 05/04/19 13:00 Temperature Pulse Rate 71 80 70 Respiratory Rate Blood Pressure 155/92 169/94 O2 Sat by Pulse Oximetry 93 L 96 95 05/04/19 14:00 Temperature Pulse Rate 65 Respiratory Rate Blood Pressure O2 Sat by Pulse Oximetry 95 Laboratory Results - last 24 hr 05/04/19 05/04/19 05/04/19 13:24 13:24 13:24 WBC 10.82 H RBC 4.31 Hgb 13.2 Hct 38.8 MCV 90.0 MCH 30.6 MCHC 34.0 RDW Std Deviation 13.2 Plt Count 198 MPV 9.1 Immature Gran % (Auto) 0.5 Neut % (Auto) 69.9 Lymph % (Auto) 16.3 L [place] % (Auto) 8.3 Eos % (Auto) 4.3 Baso % (Auto) 0.7 Immature Gran # (Auto) 0.05 H Neut # (Auto) 7.56 H Lymph # (Auto) 1.76 [place]aves # (Auto) 0.90 H Eos # (Auto) 0.47 Baso # (Auto) 0.08 PT 13.1 INR 0.98 PTT (Actin FS) 25.9 Sodium 137 Potassium 4.3 Chloride 100 Carbon Dioxide 26 Anion Gap 11 BUN 18 Creatinine 0.7 Estimated GFR/1.73 m2 > 60 BUN/Creatinine Ratio 26 Glucose 174 H Calculated Osmolality 280 Calcium 8.8 Total Bilirubin 0.43 AST 18 ALT 23 Alkaline Phosphatase 83 Total Protein 6.7 Albumin 3.8 Globulin 2.9 Albumin/Globulin Ratio 1.3 Orders Category Date Time Status Saline Loc NOW Care 05/04/19 12:16 Active Shoulder Immobilizer DIRECTED Care 05/04/19 13:26 Active Social Service Consult Routine Cons 05/04/19 13:39 Active HUMERUS-LEFT [RAD] Stat Exams 05/04/19 12:16 Completed SHOULDER-LEFT [RAD] Stat Exams 05/04/19 12:16 Completed CBC WITH ELECTRONIC DIFF [HEME] Stat Lab 05/04/19 13:24 Completed COMPREHENSIVE METABOLIC PANEL [CHEM] Stat Lab 05/04/19 13:24 Completed PROTIME WITH INR [COAG] Stat Lab 05/04/19 13:24 Completed PTT [COAG] Stat Lab 05/04/19 13:24 Completed Hydromorphone [Dilaudid] Med 05/04/19 12:57 Discontinued 0.5 mg IV NOW ONE Transfer/Admit Order [TRANSFER] Routine Transfer 05/04/19 15:04 Ordered Result Diagrams: 05/04/19 13:24 05/04/19 13:24 - REASSESSMENT Reassessment #1 Time Reassessed: 13:00 Status: unchanged (humeral head fracture of left arm. will consult ortho. will give dilaudid and order blood work) - XRAY 1 XRAY: Left XRAY Study: Shoulder, Humerus (HISTORY: injury TECHNIQUE: Left shoulder two views COMPARISON: None. FINDINGS: There are fracture lines to the humeral head and neck with compaction. No dislocation. The glenoid. No separation at the acromioclavicular joint although there is arthritis at the AC joint. IMPRESSION: Humeral head fracture.) - CONSULTS/PCP/HOSPITALIST Notification #1 *Consult/PCP/Hospitalist*: Dr. Chambers Time Discussed: 13:20 Consult Disposition: F/U in office (shoulder immobilizer and pain meds, will see in office) #2 Consult: Dr. Rolly Alegre Time Discussed: 15:58 Consult Disposition: Will see in ED (admitted patient) Departure - Departure Date of Disposition Decision: 05/04/19 Time of Disposition Decision: 15:57 DIAGNOSIS: Humeral head fracture Disposition: ADMITTED INPATIENT Certified Medical Emergency: Emergent Condition: Stable - Critical Care Note This patient required my direct & personal management of CC.: No Attestation - Physician/ MARYANN Attestation The physician spent face to face time with patient:: Yes Advanced Practice Provider documentation review:: Supervising physician onsite and consulted in the evaluation and care of this patient. The physician did have a face to face encounter with the patient.
--- NOTE | 2019-05-04 12:40 | Diag Imaging Result Doc PS360 ---
EXAM: HUMERUS-LEFT HISTORY: injury TECHNIQUE: Left humerus, two views COMPARISON: None. FINDINGS: There is a humeral head fracture. No fracture to the shaft. IMPRESSION: Humeral head fracture Electronically signed by Kendall Watkins 05/04/2019 12:38 PM
--- NOTE | 2019-05-04 12:41 | Diag Imaging Result Doc PS360 ---
EXAM: SHOULDER-LEFT HISTORY: injury TECHNIQUE: Left shoulder two views COMPARISON: None. FINDINGS: There are fracture lines to the humeral head and neck with compaction. No dislocation. The glenoid. No separation at the acromioclavicular joint although there is arthritis at the AC joint. IMPRESSION: Humeral head fracture. Electronically signed by Kendall Watkins 05/04/2019 12:39 PM
[2019-05-04] MEDS ORDERED: DILAUDID IV ONE (12:57)
[2019-05-04 13:42] LABS: HEMATOCRIT 38.8 % (37.0-47.0); HEMOGLOBIN 13.2 g/dL (12.0-16.0); RBC 4.31 XMIL (4.2-5.4); WBC 10.82 X1000 (4.8-10.8)
[2019-05-04 13:43] LABS: BASO# 0.08 X1000 (0.0-0.2); BASO% 0.7 % (0.0-0.8); EOS# 0.47 X1000 (0.0-0.7); EOS% 4.3 % (0.0-10.0); IMM GRAN# 0.05 X1000 (0.0-0.04); IMM GRAN% 0.5 % (0.0-0.5); LYMPH# 1.76 X1000 (1.2-3.4); LYMPH% 16.3 % (20.5-51.1); MCH 30.6 PG (27-31); MONO% 8.3 % (1.7-9.3); MPV 9.1 FL (7.4-10.4); NEUT# 7.56 X1000 (1.4-6.5); NEUT% 69.9 % (42.2-75.2); PLT 198 X1000 (130-400); RDW 13.2 % (11.5-14.5)
[2019-05-04 13:47] LABS: INR 0.98; PROTIME 13.1 Seconds (11.0-16.0)
[2019-05-04 13:48] LABS: PTT 25.9 Seconds (22.3-41.8)
[2019-05-04 14:10] LABS: AGAP 11; ALB/GLOB RATIO 1.3; ALBUMIN 3.8 g/dL (3.5-5.0); ALKALINE PHOSPHATASE 83 U/L (32-104); BUN 18 mg/dL (8-22); CALCIUM 8.8 mg/dL (8.8-10.2); CHLORIDE 100 mmol/L (98-107); COSMO 280; CREATININE 0.7 mg/dL (0.5-0.9); ESTIMATED GFR > 60; GLUCOSE 174 mg/dL (70-104); GOT 18 U/L (10-30); GPT 23 U/L (10-36); POTASSIUM 4.3 mmol/L (3.5-5.1); SODIUM 137 mmol/L (136-145); TCO2 26 mmol/L (25-35); TOTAL BILIRUBIN 0.43 mg/dL (0.20-1.00); TOTAL PROTEIN 6.7 g/dL (6.3-8.3)
[2019-05-04] MEDS: LOVENOX SUBQ SCH (17:28)
[2019-05-04] MEDS: DEMEROL IV PRN (17:28)
[2019-05-04] MEDS: AMARYL PO SCH (18:35)
--- NOTE | 2019-05-04 19:01 | HISTORY AND PHYSICAL ---
CHIEF COMPLAINT: Left shoulder pain. HISTORY OF PRESENT ILLNESS: Mrs. Sarah Beth Chaparro is a 74-year-old lady, who is well known to me. She has a history of multiple medical problems, including essential hypertension, allergic rhinitis, type 2 dnx-jxvrqpv-svwxydexk diabetes mellitus complicated by polyneuropathy, primary hypothyroidism, and mixed hyperlipidemia. She tripped and fell earlier today, injuring her left shoulder. The x-ray of the left shoulder demonstrated fracture lines to the humeral head and neck with compaction. She is with complaint of significant shoulder pain. PAST MEDICAL HISTORY: Essential hypertension, mixed hyperlipidemia, primary hypothyroidism, type 2 gwc-dbxvsbz-ulqgbiqki diabetes mellitus complicated by polyneuropathy. PAST SURGICAL HISTORY: Tonsillectomy and adenoidectomy, cholecystectomy, total abdominal hysterectomy. FAMILY HISTORY: Her father of complications of colon cancer at age 73. Her mother at the age of 57; she had hypertension, end-stage renal disease on hemodialysis, and Alzheimer's dementia. SOCIAL HISTORY: She lives alone. There is essentially little if any family support. She does not consume alcoholic beverages. She does not smoke. MEDICATIONS: Aspirin 325 mg daily. Catapres 0.2 mg t.i.d. fexofenadine 180 mg daily. Flonase nasal spray 1 spray to each nostril daily. Neurontin 300 mg b.i.d. Amaryl 2 mg b.i.d. Levothyroxine 88 mcg daily. Carvedilol 25 mg b.i.d. Losartan 100 mg daily. Pravastatin 20 mg at bedtime. Onglyza 5 mg daily. Dyazide 1 p.o. daily. REVIEW OF SYSTEMS: She denies any recent weight gain or weight loss.HEENT: She wears glasses. She is hard of hearing. Cardiovascular: No chest pain, palpitations, or anginal equivalents. Pulmonary: No shortness of breath, PND, orthopnea. Gastrointestinal: No reflux, dysphagia, melena, hematochezia, change in bowel habits, or rectal bleeding. Endocrine: No polyuria, no polydipsia. No cold or heat intolerance. Skin: No easy bruisability. Genitourinary: No leakage of urine with coughing or laughing. Neurologic: No migraines or seizures. She has diminished light touch in the distal extremities bilaterally. Musculoskeletal: She has diminished range of motion in the left shoulder due to pain. ASSESSMENT AND PLAN: 1. Left shoulder fracture. I am going to admit her to [facility] overnight. I will consult Dr. Chambers to fit her for a shoulder immobilizer. We will use Demerol q.4 h. p.r.n. pain. I will hope to transition her off intravenous pain medicines to oral pain medications. I have talked to Dr. Chambers, who reviewed the films. She does not appear to be a surgical candidate at this time, but will need to wear an immobilizer. 2. Hypertension. We will continue her current regimen of medications and adjust her medicines as needed. 3. Type 2 lui-jmtyvzw-etrmkwxjg diabetes mellitus, complicated by polyneuropathy. We will continue an 1800-calorie ADA diet, regular home medicines with Humulin R sliding scale and patterned blood sugars. Given her comorbid conditions and clinical presentation, I believe it is reasonable to admit her to the hospital for pain control. At this point in time, I only anticipate that she will be in the hospital for 1 midnight, and I will therefore place her in outpatient status with observation services. cc: Marilee Alegre MD
[2019-05-04] MEDS: FLONASE NAS SCH (22:30)
[2019-05-04] MEDS: PRAVACHOL PO SCH (22:30)
[2019-05-04] MEDS: COREG PO SCH (22:30)
[2019-05-04] MEDS: TYLENOL PO PRN (22:36)
[2019-05-05] MEDS: DEMEROL IV PRN ×3 (01:30→22:35)
[2019-05-05] MEDS: PHENERGAN IV PRN ×3 (01:30→22:35)
[2019-05-05] MEDS: NEURONTIN PO SCH ×3 (01:30→22:36)
[2019-05-05] MEDS: CATAPRES PO SCH ×4 (01:30→22:37)
[2019-05-05] MEDS: SODIUM CHLORIDE 0.9% INJ PRN ×3 (01:30→22:35)
[2019-05-05] MEDS: COREG PO SCH ×2 (08:35→22:36)
[2019-05-05] MEDS: PRILOSEC PO SCH (08:35)
[2019-05-05] MEDS: SYNTHROID PO SCH (08:36)
[2019-05-05] MEDS: THERA M PLUS PO SCH (08:36)
[2019-05-05] MEDS: DYAZIDE PO SCH (08:36)
[2019-05-05] MEDS: ASPIRIN PO SCH (08:36)
[2019-05-05] MEDS: ALLEGRA PO SCH (08:36)
[2019-05-05] MEDS: AMARYL PO SCH ×2 (08:36→16:16)
[2019-05-05] MEDS ORDERED: COZAAR PO SCH (09:00)
[2019-05-05] MEDS: DIOVAN PO SCH (09:35)
[2019-05-05] MEDS: PATIENT'S OWN MED PO SCH ×2 (09:35→21:00)
[2019-05-05] MEDS: ONGLYZA PO SCH ×2 (09:49→16:17)
--- NOTE | 2019-05-05 09:56 | PROGRESS NOTE ---
DATE: 05/05/2019 SUBJECTIVE: Ms. Chaparro tripped and fell on 05/04/2019 sustaining a humeral head fracture. An x-ray of the shoulder demonstrated fracture lines to the humeral head and neck with compaction. Her shoulder is now immobilized. She continues with persistent pain throughout the night. She reported that the Demerol made her very dizzy and nauseated. She is requiring assistance to transfer in and out of bed. Her blood pressure is fluctuating. Systolic blood pressures are ranging from 156-172, whereas her diastolic blood pressures are in the 50s and 60s. She denies any chest pain, palpitations or anginal equivalents. She does have a history of type 2 non insulin-dependent diabetes mellitus. Her blood sugars are fluctuating. Sugars are ranging from 174 to 236. OBJECTIVE: Vital Signs: Temperature 98.5 degrees, pulse 78, respiratory rate 16, BP 156/58. CV: Regular rate and rhythm. Lungs: Clear. Abdomen: Soft, nontender, with active bowel sounds. Musculoskeletal: She has significant diminished range of motion secondary to pain in the left shoulder. ASSESSMENT AND PLAN: 1. Essential hypertension. Her blood pressure is still fluctuating. Heart rates are in the 70s. She is already taking clonidine and high-dose Carvedilol. I am going to change losartan to valsartan/hydrochlorothiazide 320 mg/25 one daily and monitor her blood pressure. 2. Type 2 non insulin-dependent diabetes mellitus complicated by polyneuropathy. I will increase the Amaryl to 4 mg twice daily and continue pattern sugars on a Humulin-R sliding scale. 3. Left humeral fracture. I am going to begin Tylenol 650 mg one q. 6 hours and switch her from Demerol to morphine. At this point, she is going to require assistance with activities of daily living. She lives alone; there is no family in the area. We believe that she would benefit from short-term rehabilitation. I have consulted [employer], as well as physical therapy and occupational therapy. cc: Marilee Alegre MD
--- NOTE | 2019-05-05 14:50 | Diag Imaging Result Doc PS360 ---
EXAM: CHEST-1 VIEW INDICATION: REHAB TECHNIQUE: One view COMPARISON: 11/04/2018 FINDINGS: Inspiration is slightly suboptimal. There is stable elevation of the right hemidiaphragm. The lungs are grossly clear. There is no discrete pleural fluid collection or pneumothorax. The cardiomediastinal silhouette and central vasculature are grossly unremarkable. IMPRESSION: No evidence of acute pathology by plain radiograph. Electronically signed by Oscar Todd 05/05/2019 2:48 PM
[2019-05-05] MEDS: LOVENOX SUBQ SCH (16:16)
[2019-05-05] MEDS: TYLENOL PO PRN (16:16)
[2019-05-05 19:04] LABS: URINE SOURCE CLEAN CATCH
--- NOTE | 2019-05-05 19:10 | Diag Imaging Result Doc PS360 ---
EXAM: KNEE 1-2 VIEWS-RIGHT INDICATION: right knee pain and swelling after fall TECHNIQUE: 2 views COMPARISON: None. FINDINGS: There is no discrete fracture, dislocation, or significant intrinsic osseous lesion. The visualized joint spaces are essentially unremarkable. There is prominent prepatellar soft tissue edema. IMPRESSION: Prepatellar soft tissue edema but no evidence of acute osseous abnormality. Electronically signed by Oscar Todd 05/05/2019 7:08 PM
[2019-05-05 19:12] LABS: BILIRUBIN URINE NEGATIVE (NEGATIVE); BLOOD URINE NEGATIVE (NEGATIVE); COLOR YELLOW; GLUCOSE URINE NEGATIVE (NEGATIVE); KETONE URINE NEGATIVE (NEGATIVE); LEUKOCYTES URINE NEGATIVE (NEGATIVE); NITRITE URINE NEGATIVE (NEGATIVE); PROTEIN URINE NEGATIVE (NEGATIVE); TURBIDITY URINE CLEAR (CLEAR); UROBILINOGEN URINE NORMAL (NORMAL)
[2019-05-05 19:13] LABS: UR EPITHELIAL CELLS <10 /HPF (<10); URINE BACTERIA NEGATIVE /HPF; URINE RBC <10 /HPF (<10); URINE WBC <10 /HPF (<10)
[2019-05-05] MEDS: FLONASE NAS SCH (21:00)
[2019-05-05] MEDS: PRAVACHOL PO SCH (22:36)
[2019-05-06] MEDS: TYLENOL PO PRN ×2 (05:42→12:06)
[2019-05-06] MEDS ORDERED: PERCOCET-10 PO PRN (08:31)
[2019-05-06] MEDS ORDERED: GLUCOPHAGE PO SCH (08:45)
[2019-05-06] MEDS ORDERED: ACTOS PO SCH (09:00)
[2019-05-06] MEDS: ASPIRIN PO SCH (10:17)
[2019-05-06] MEDS: THERA M PLUS PO SCH (10:17)
[2019-05-06] MEDS: DYAZIDE PO SCH (10:17)
[2019-05-06] MEDS: CATAPRES PO SCH (10:17)
[2019-05-06] MEDS: ALLEGRA PO SCH (10:17)
[2019-05-06] MEDS: DIOVAN PO SCH (10:17)
[2019-05-06] MEDS: PRILOSEC PO SCH (10:17)
[2019-05-06] MEDS: NEURONTIN PO SCH (10:17)
[2019-05-06] MEDS: COREG PO SCH (10:17)
[2019-05-06] MEDS: PATIENT'S OWN MED PO SCH (10:18)
[2019-05-06] MEDS: AMARYL PO SCH (10:18)
[2019-05-06] MEDS: SYNTHROID PO SCH (10:18)
--- NOTE | 2019-05-06 10:51 | DISCHARGE SUMMARY ---
ADMISSION DATE: 05/04/2019 DISCHARGE DATE: 05/06/2019 DISCHARGE DIAGNOSES: 1. Closed left humeral fracture (date of injury 05/04/2019). 2. Essential hypertension. 3. Primary hypothyroidism. 4. Gastroesophageal reflux disease. 5. Idiopathic progressive polyneuropathy. 6. Mixed hyperlipidemia. 7. Benign paroxysmal positional vertigo bilaterally. DISCHARGE INSTRUCTIONS: 1. The patient will be transferred via ambulance to [facility] in order to undergo short- term rehab. 2. Activity as tolerated. 3. An 1800 calorie ADA diet. DISCHARGE MEDICATIONS: 1. Tylenol 650 mg q. 6 hours p.r.n. temperature greater than 101, or pain on a pain scale of 4 or less. 2. Aspirin 325 mg daily. 3. Carvedilol 25 mg b.i.d. 4. Catapres 0.2 mg t.i.d. 5. Fexofenadine 180 mg daily. 6. Flonase 1 spray to each nostril daily. 7. Gabapentin 300 mg b.i.d. 8. Amaryl 4 mg b.i.d. 9. Levothyroxine 88 mcg daily. 10. Metformin 500 mg b.i.d. 11. Prilosec 20 mg daily. 12. Percocet 10 one q. 6 hours p.r.n. pain. 13. Actos 30 mg daily. 14. Pravastatin 20 mg at bedtime. 15. Diovan 320 mg daily. 16. Triamterene/hydrochlorothiazide 1 p.o. daily. DISCHARGE PHYSICAL EXAMINATION: General/vital signs: This is an elderly, frail, 74-year-old lady in no apparent distress. She is afebrile. Vital signs are stable. CV: Regular rate and rhythm. Lungs: Clear. Abdomen: Soft, nontender, with active bowel sounds. HOSPITAL COURSE: Ms. Chaparro tripped and fell, injuring her left shoulder. An x-ray demonstrated fracture lines to the humeral head and neck with compaction. The patient was placed in a shoulder immobilizer and was admitted to [facility] as an outpatient with [facility] for pain management. We started Tylenol every 6 hours and initially used Demerol for breakthrough pain. We transitioned her to Percocet. Dr. Chambers reviewed the films and did not feel her to be a surgical candidate at this time. We will make arrangements for her to see Dr. Chambers as an outpatient in 1 week for repeat x-rays. Because of the inability of her left shoulder and diminished range of motion from previous broken right shoulder, we did not feel that it was safe for her to go home alone. She has no family support. She certainly is at a high risk for falls. We consulted physical therapy, as well as occupational therapy. We were able to gain approval for her to undergo short-term rehab at [facility]. She does have a longstanding history of hypertension. Her blood pressure had been fluctuating. We stopped the losartan and began valsartan. Blood pressure improved greatly. She denied any chest pain, palpitations, or anginal equivalents. 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 Blood sugars have been fluctuating. She has a hard time buying the Onglyza. We increased the Amaryl to 4 mg b.i.d., discontinued the Onglyza and resumed Actos and metformin. I will have them check her sugars at least twice a day and adjust her medicines as needed. Having reached maximum hospital benefit, the patient was discharged in stable condition. cc: Marilee Alegre MD
[2019-05-06 11:24] VITALS: BP 153/61
== END 2019-05-06 14:25 ==
LOC: SUPCPDRO → ED 12:02 → EDIPHOLD 15:47 → INTOOBSV 15:47 → 4N 18:20
PROVIDERS: ADMIT Internal Medicine; ATTEND Internal Medicine